=== PATIENT | female | born 1950 | race Caucasian/White ===

== ENCOUNTER 2019-06-27 11:12 | Emergency (ER) | payer MEDICARE, SELFPAY ==
[2019-06-27] VITALS (67 sets, daily range): BP systolic 95–122; BP diastolic 68–88; PULSE 108–149; RESP 4–37; TEMP 36.5–37.1; O2SAT 91–99
--- NOTE | 2019-06-27 11:26 | DI.CT_ITS ---
EXAM: CT ABDOMEN PELVIS W CLINICAL HISTORY: Abdominal pain TECHNIQUE: CT examination of the abdomen and pelvis was performed with bolus infusion of 94 cc's of Omnipaque 350. COMPARISON: No exams were available for comparison FINDINGS: Heart is mildly enlarged. Lungs are clear with small bilateral pleural effusions noted, nonspecific. Hepatic parenchyma is heterogeneous and slightly decreased in attenuation, hepatic steatosis versus d ecreased cardiac output. Spleen is unremarkable as is the pancreas. Cholelithiasis noted. Small pericholecystic fluid collec tion noted, this may be due to mild ascites/pleural effusions versus localized inflammation, please c orrelate clinically. Abdominal aorta is of normal diameter. Visceral vessels are quite small in diameter. Significant na rrowing of the superior mesenteric artery noted a couple of cm above its origin, greater than 50 perc ent luminal diameter stenosis of small diameter artery. No significant abdominal wall hernia seen. Probable old right and left renal infarcts noted. No evidence of hydronephrosis or nephrolithiasis. No ureterolithiasis. Adrenals appear mildly hypertrophied bilaterally. No gross abdominal or pelvic adenopathy seen. Small fluid collection in the pelvis, nonspecific. Question mild wall thickening sigmoid colon, mild diverticulitis or colonic are colitis not excluded but the findings may be related to the aforementi oned mild generalized ascites and question mild CHF as evidenced by pleural effusions. IMPRESSION: 1. Bilateral pleural effusions, fluid in gallbladder fossa, fluid in the pelvis, the findings may als o be associated with mild cardiac failure 2. Cholelithiasis, no gross gallbladder wall thickening noted but if there is high clinical suspicion of cholecystitis, additional evaluation with ultrasound may be obtained. 3. Question wall thickening sigmoid colon, diverticulitis or colitis may be present, please correlate clinically.
--- NOTE | 2019-06-27 11:29 | W.ED.GENAD ---
Discharge Plan Disposition Patient Disposition: [facility] Condition: Stable Discharge Details Chief Complaint: Abd Prob Clinical Impression: Ascending cholangitis Primary Care Provider: Bhupendra Gagnon ED Provider: Geneiss Chao Home Meds and New Rx's Prescriptions: No Action aspirin 81 MG tablet,delayed release (DR/EC) 81 mg PO DAILY RF: 0 nitroglycerin 0.4 MG tablet, sublingual 0.4 mg Sublingual PRN RF: 0 SENEKOT-S 2 tab PO DAILY PRNRF: 0 venlafaxine 75 mg capsule,extended release 24hr 75 mg PO QAM Qty: 90 RF: 4 furosemide 20 mg tablet 20 mg PO DAILY Qty: 90 RF: 4 simvastatin 80 mg tablet 80 mg PO HS Qty: 90 RF: 4 spironolactone 25 mg tablet 25 mg PO DAILY Qty: 90 RF: 4 Flovent HFA 110 mcg/actuation HFA aerosol inhaler 2 puff Inhalation BID Qty: 1 RF: 5 albuterol sulfate [ProAir HFA] 90 mcg/actuation HFA aerosol inhaler 2 puff Inhalation Q6H PRN Qty: 1 RF: 5 metoprolol succinate 50 mg Tablet Extended Release 24 Hr 50 mg PO DAILY RF: 0 alprazolam 0.25 mg Tablet 0.25 mg PO PRN PRNRF: 0 lisinopril 10 mg Tablet 10 mg PO DAILY RF: 0 Discharge Data Discharge Date/Time-TO BE ENTERED AT DEPARTURE: 06/27/19 17:32 Medical Decision Making <Deondre Blackwell NP - Last Filed: 06/28/19 07:59> Patient presenting to the emergency department for chief complaint of abdominal pain. Patient states that she has had intermittent colicky abdominal pain for the past week, odd taste in her mouth, slight increase of cough with coughing causing some dry heaves. Patient this morning had some dry heaves and noted some palpitations and so decided to come to the emergency department given her significant cardiac history. Patient states previous CA with bypass surgery and pacemaker, COPD, and occasional acid reflux otherwise denies any other medical history. Physical exam shows a anxious tachypneic patient that is otherwise alert and oriented, afebrile, stable blood pressure. Physical exam does show diffuse abdominal tenderness throughout the abdomen with patient pointing to periumbilical area for discomfort, beyond tachycardia cardiac exam is unremarkable, respiratory exam does show scattered wheezing and again tachypnea but otherwise no other acute findings noted on exam. Plan to check labs, EKG, chest x-ray and CT imaging. Pending results patient given DuoNeb, GI cocktail, IV fluid bolus, and small dose of morphine. EKG reviewed with Dr. Rc cid and shows sinus rhythm, rate of 120, right axis deviation and otherwise diffuse nonspecific T wave abnormality that is nondiagnostic, no STEMI noted. Pending results staffing specialist noted that patient vomited up GI cocktail so patient ordered Phenergan. Review of results show a leukocytosis with WBCs 15.77, CMP shows elevated anion gap of 14.9, creatinine of 1.34 and GFR of 39.45, no significant concern though is patient's elevated LFTs, total bilirubin of 2.0, AST of 714, ALT of 492, alk phos of 161, initial troponin is negative and lipase is also normal at 158. There is considerable concern for possible hepatitis versus cholecystitis. With patient's decreased GFR I did discuss with patient risk versus benefit of CT imaging with IV contrast. While she is in the accepted range of above 30 I wanted to inform patient of possible complications. After discussion with patient and significant other they were agreeable to having CT imaging performed with contrast. Patient remains tachycardic otherwise stable at this time. CT IMPRESSION: 1. Early uncomplicated sigmoid diverticulitis. 2. Submucosal fat deposition about the ascending colon with mild pericolonic fat stranding about the hepatic flexure is nonspecific but could represent an infectious or inflammatory process. 3. Small amount of free pelvic fluid thought likely related to adjacent diverticulitis. 4. Air in the vagina which can be seen with manipulation. Recommend clinical correlation to exclude infectious process. 5. Bilateral adrenal gland thickening incompletely evaluated. 6. Right kidney with chronic and prior sequela of infectious/ischemic insult. Impression should also include cholelithiasis in a nondistended gallbladder with adjacent pericholecystic fluid within the gallbladder fossa. Recommend clinical correlation and if needed, right upper quadrant ultrasound for further imaging evaluation. Chest x-ray showed cardiac device otherwise no acute findings. Given patient's laboratory values I am concerned for a infected gallbladder more so than the diverticulitis. Given this I did start patient on Zosyn and called Dr. Powell for surgical consultation. Dr. Ortiz was able to come in and evaluate patient and upon further review of records patient has a very low EF given her cardiac history patient does not meet criteria for any surgical interventions at [facility] and needs tertiary care center intervention. Patient does meet sepsis criteria given elevated white count, concern for ascending cholangitis, lactic acidosis, tachycardia and tachypnea. [facility] [place] and imaging sent. <GUSTAVO Kamara - Last Filed: 06/27/19 16:55> Accepted patient sign out pending disposition and callback from [facility]. I spoke with [facility] regarding this patient I spoke with surgical staff as well as the supervisor transferring and boxing. They do have appropriate staff to accept this patient. Accepting physician Dr. Go. Pt to be transferred via ambulance. Pt agrees with plan of care and disposition. HPI <Deondre Blackwell NP - Last Filed: 06/28/19 07:59> General Mode of arrival: ambulatory. Date/Time Provider Initiated Documentation: 06/27/19 11:13. Limitations to Documentation: no limitations. Information obtained by: patient and RN notes reviewed. History of Present Illness 68 year old F presents to the emergency department with the chief complaint of Abdominal pain, described as moderate, with intensity rated at 8. Quality is described as sharp, and is localized to the abdomen. Patient started experiencing this week(s) (2) and it has been intermittent and colicky. No relieving factors improve symptom(s), No exacerbating factors reported . Patient did receive the following treatments prior to arrival, other (Pepto-Bismol) Related Data Home Medications Medication Instructions Recorded Confirmed Senekot-S 2 tab PO DAILY PRN 06/17/13 06/27/19 aspirin 81 mg PO DAILY tab-cap 06/17/13 06/27/19 nitroglycerin 0.4 mg SUBLINGUAL PRN 06/17/13 06/27/19 venlafaxine 75 mg capsule,extended 75 mg PO QAM #90 tab 08/25/18 06/27/19 release 24 hr furosemide 20 mg tablet 20 mg PO DAILY #90 tab-cap 10/23/18 06/27/19 simvastatin 80 mg tablet 80 mg PO HS #90 tab 10/23/18 06/27/19 spironolactone 25 mg tablet 25 mg PO DAILY #90 tab-cap 11/12/18 06/27/19 fluticasone propionate 110 2 puff INHALATION BID #1 inhaler 01/02/19 06/27/19 mcg/actuation HFA aerosol inhaler albuterol sulfate 90 mcg/actuation 2 puff INHALATION Q6H PRN #1 06/16/19 06/27/19 aerosol inhaler inhaler alprazolam 0.25 mg PO PRN PRN 06/27/19 06/27/19 lisinopril 10 mg PO DAILY 06/27/19 06/27/19 metoprolol succinate 50 mg PO DAILY 06/27/19 06/27/19 Previous Rx's Medication Instructions Recorded venlafaxine 75 mg capsule,extended 75 mg PO QAM #90 tab 08/25/18 release 24 hr furosemide 20 mg tablet 20 mg PO DAILY #90 tab-cap 10/23/18 simvastatin 80 mg tablet 80 mg PO HS #90 tab 10/23/18 spironolactone 25 mg tablet 25 mg PO DAILY #90 tab-cap 11/12/18 fluticasone propionate 110 2 puff INHALATION BID #1 inhaler 01/02/19 mcg/actuation HFA aerosol inhaler albuterol sulfate 90 mcg/actuation 2 puff INHALATION Q6H PRN #1 06/16/19 aerosol inhaler inhaler Allergies Allergy/AdvReac Type Severity Reaction Status Date / Time niacin Allergy Intermediate ITCHING Unverified 09/27/17 08:37 General Stated Complaint: Abd Prob KRUPA: 3 Review of Systems <Deondre Blackwell NP - Last Filed: 06/28/19 07:59> Constitutional Constitutional: Denies chills, Denies fever(s) and Reports poor appetite Cardiovascular Cardiovascular: Denies chest pain, Reports palpitations and Denies dyspnea Respiratory Respiratory: Reports cough and Denies dyspnea Gastrointestinal Gastrointestinal: Reports as per HPI, Reports abdominal pain, Denies melena, Denies change in bowel habits, Denies constipation, Reports heartburn, Denies diarrhea, Reports nausea and Denies vomiting Genitourinary Genitourinary: Denies urinary frequency and Denies dysuria Endocrine Endocrine: Reports palpitations PFSH <Deondre Blackwell NP - Last Filed: 06/28/19 07:59> Medical History (Updated 06/27/19 @ 16:20 by Kelsie Powell DO) Acute cholecystitis due to biliary calculus (Acute) Ischemic dilated cardiomyopathy (Acute) Myocardial infarct (Chronic) Severe chronic obstructive pulmonary disease (Acute) Surgical History BYPASS Coronary Stent x 3 DEFIBRILATOR (~10/2014) 2005;2014 Ligation of fallopian tube Family History Mother Essential hypertension Father Neoplasm LUNG Asthma Sister MS (multiple sclerosis) Brother No problems noted. FAMILY HISTORY MS (multiple sclerosis) Grandmother Heart disease Brother No problems noted. Son No problems noted. Social History Smoking/Tobacco Use Status: Current every day Alcohol Intake: current Alcohol Intake frequency: a few times a week Alcohol type: beer Drug use: Never Substance use type: does not use Additional Social history: pt is not alone to ask privately Exam <Deondre Blackwell NP - Last Filed: 06/28/19 07:59> Const General: cooperative and anxious Orientation: alert, awake and oriented x3 Resp Effort & Inspection: able to speak in complete sentences and tachypneic Auscultation: wheezes expiratory wheezes and scattered wheezes Cardio Rate: regular rate Rhythm: regular rhythm Heart Sounds: S1 normal, S2 normal, no click, no gallops, no murmurs and no rubs GI Inspection: normal to inspection Palpation: soft, no hepatosplenomegaly, not firm, no guarding, no masses, no pulsatile masses, not rigid, no splenomegaly and tender (Diffuse nonfocal) Auscultation: normal bowel sounds Back/Spine/Pelvis Back: no CVA tenderness Neuro General: alert, awake, oriented x3, gait normal and moves all extremities Course <Deondre Blackwell NP - Last Filed: 06/28/19 07:59> Vital Signs Vital signs: Vital Signs Temperature 36.5 C 06/27/19 11:20 Pulse 120 H 06/27/19 11:20 Respiratory Rate 24 06/27/19 11:20 Pulse Oximetry 96 06/27/19 11:20 Temperature 36.5 C 06/27/19 11:20 Temperature Source Oral 06/27/19 11:20 Pulse 120 H 06/27/19 11:20 Respiratory Rate 24 10/19/19 11:20 Pulse Oximetry 96 06/27/19 11:20 Oxygen Delivery Method Room Air 06/27/19 11:20 Oxygen Flow Rate 0 06/27/19 11:20 Pain Level 8 06/27/19 11:20 Sign Out <Deondre Blackwell NP - Last Filed: 06/28/19 07:59> Sign Out Data: Sign Out Comment: Patient signed out to GUSTAVO Willis. Patient is [place] [facility] [place] given that patient has poor cardiac function, COPD, and significant comorbidities complicating any surgical availability at our facility. Last updated by Deondre Blackwell NP at 06/27/19 16:08
[2019-06-27] MEDS: Normal Saline 500 ML IV ×3 (11:45→14:35)
[2019-06-27 11:52] LABS: Abs Immature Grans 0.06 k/cumm (0.0-0.09); Absolute Basophil Count 0.05 k/cumm (0.0-0.2); Absolute Eosinophil Count 0.03 k/cumm (0.0-0.7); Absolute Monocyte Count 1.62 k/cumm (0.11-0.7); Basophils % 0.3; Eosinophils % 0.2; HGB 14.3 g/dL (12.0-15.5); Immature Grans % 0.4; Lymphocytes % 11.7; Mean Corp. HGB Concentration 32.5 g/dL (32.0-36.0); Mean Corpuscular Hemoglobin 29.9 pg (27.0-33.0); Mean Corpuscular Volume 92.1 fL (80-95); Mean Platelet Volume 11.3 fL (8.0-11.0); Monocytes % 10.3; Neutrophils % 77.1; Platelet Count 268 x1000/uL (130-400); RBC 4.78 m/cumm (4.00-5.20); RBC Distribution Width 14.4 % (11.7-14.6); White Blood Cell Count 15.77 k/cumm (4.4-10.8)
[2019-06-27] MEDS: Albuterol/Ipratropium 3 ML UPD VIAL UPD (11:56)
[2019-06-27 12:10] LABS: ALT 492 U/L (14-59); AST 714 U/L (15-37); Albumin 4.3 g/dL (3.4-5.0); Alkaline Phosphatase 161 U/L (46-116); Anion Gap 14.9 mmol/L (3-11); BUN 18 mg/dL (7-18); CO2 23.1 mmol/L (21.0-32.0); CREATININE 1.34 mg/dL (0.55-1.02); Calcium 8.7 mg/dL (8.5-10.1); Chloride 98 mmol/L (98-107); Estimated GFR 39.45 (mL/min/1.73m2); Glucose 144 mg/dL (70-100); Lipase 158 U/L (73-393); Magnesium 1.7 mg/dL (1.8-2.4); Potassium 4.4 mmol/L (3.5-5.1); Sodium 136 mmol/L (136-145); Total Protein 7.1 g/dL (6.4-8.2)
[2019-06-27 12:14] LABS: Troponin I < 0.05 ng/mL (0.00-0.06)
[2019-06-27 12:15] LABS: Absolute Lymphocyte Count 1.85 k/cumm (1.2-3.4); Absolute Neutrophil Count 12.16 k/cumm (1.2-6.7)
[2019-06-27 12:17] LABS: Diff Comment Diff Reviewed; RBC Morphology Normal
[2019-06-27] MEDS: Omnipaque 350 MG/ML 100 ML BTL IJ (12:30)
[2019-06-27] MEDS: Normal Saline Flush 10 ML SYR IVP (12:31)
--- NOTE | 2019-06-27 12:35 | DI.RAD_ITS ---
EXAM: XR CHEST 2V PA LATERAL CLINICAL HISTORY: cough TECHNIQUE: COMPARISON: No exams were available for comparison FINDINGS: Heart is mildly enlarged. Small pleural effusions were noted on CT. Transvenous cardiac pacemaker a nd coronary artery stent noted. No hilario pulmonary edema or consolidation. IMPRESSION: Cardiomegaly, no hilario pulmonary edema but bilateral pleural effusions were noted on CT and could rep resent mild CHF.
[2019-06-27 13:13] LABS: Lactate 3.6 mmol/L (0.6-1.4)
[2019-06-27 13:32] LABS: Bilirubin Small (Negative); Blood Trace-intact (Negative); Clarity Clear (Clear); Glucose Negative (Negative); Ketones Negative (Negative); Leukocyte Esterase Negative (Negative); Nitrite Negative (Negative); pH 5.5 (5-8)
--- NOTE | 2019-06-27 13:47 | DI.VRAD_ITS ---
PROCEDURE INFORMATION: Exam: XR Chest, 2 Views Exam date and time: 06/27/2019 12:50 PM Clinical history: 68 years old, female; Other: Cough TECHNIQUE: Imaging protocol: XR of the chest Views: 2 views. COMPARISON: No relevant prior studies available. FINDINGS: Tubes, catheters and devices: Left chest single lead cardiac device with lead projecting likely within the right atrium and right ventricle. Lungs: Hyperinflation. Flattening of the hemidiaphragms. Upper lobe predominant emphysema change. No focal airspace consolidation. Pulmonary vasculature is within normal limits. Pleural space: No pleural effusion or pneumothorax. Heart/Mediastinum: Coronary arterial stent. Cardiomediastinal silhouette is within normal limits for size. Bones/joints: Median sternotomy wires. Median sternotomy changes. No osseous or soft tissue abnormalities. IMPRESSION: 1. Devices as above. 2. No focal airspace consolidation. 3. No acute radiographic pulmonary findings. Dictated and Authenticated by: Bhupendra Hitchcock MD. Ordering:OLAYINKA Mendosa MD
[2019-06-27 13:53] LABS: Bacteria Moderate HPF (Negative); Crystals Negative HPF (Negative); Epithelial Cells Many HPF (Negative); Mucus Negative (Negative); Other Cells Few Yeast (Negative)
[2019-06-27 13:54] LABS: C & S Indicated? No/Sq. Contamination; Casts 10-20 Hyaline LPF (Negative)
--- NOTE | 2019-06-27 14:03 | DI.VRAD_ITS ---
Addendum created by Bhupendra Hitchcock MD on 06/27/2019 2:04:44 PM EDT ADDENDUM: Impression should also include cholelithiasis in a nondistended gallbladder with adjacent pericholecystic fluid within the gallbladder fossa. Recommend clinical correlation and if needed, right upper quadrant ultrasound for further imaging evaluation. Initial report created on 06/27/2019 2:03:07 PM EDT PROCEDURE INFORMATION: Exam: CT Abdomen And Pelvis With Contrast Exam date and time: 06/27/2019 12:40 PM Clinical history: 68 years old, female; Other: Abdominal pain TECHNIQUE: Imaging protocol: Computed tomography of the abdomen and pelvis with intravenous contrast. Radiation optimization: All CT scans at this facility use at least one of these dose optimization techniques: automated exposure control; mA and/or kV adjustment per patient size (includes targeted exams where dose is matched to clinical indication); or iterative reconstruction. Contrast material: OMNIPAQUE 350; Contrast volume: 94 ml; Contrast route: IV; COMPARISON: No relevant prior studies available. FINDINGS: Mediastinum: Small sliding hiatal hernia. Liver: The liver is heterogeneously hypoattenuating/hypoenhancing which could be due to hepatic steatosis and/or poor cardiac output. Gallbladder and bile ducts: Cholelithiasis within a non-distended gallbladder. Pericholecystic fluid about the gallbladder fossa. There may be mild gallbladder wall thickening. Pancreas: Unremarkable. No ductal dilation. Spleen: Unremarkable. No splenomegaly. Adrenals: Bilateral adrenal gland thickening incompletely characterized. Kidneys and ureters: The right kidney is asymmetric and smaller than the left with areas of cortical thinning and parenchymal defect which likely represent sequelae of prior ischemic or infectious insults. No hydronephrosis. No nephrolithiasis. Stomach and bowel: No obstruction. There is submucosal fat deposition about the ascending colon with mild pericolonic fat stranding about the hepatic flexure. Sigmoid diverticulosis with wall thickening and adjacent free fluid may suggest early diverticulitis. Appendix: No evidence of appendicitis. Intraperitoneal space: Small amount of free intraperitoneal fluid about the pelvis. No free air. Vasculature: Moderate atherosclerotic calcification of the aorta and its major branches. Lymph nodes: Unremarkable. No enlarged lymph nodes. Bladder: Unremarkable as visualized. Reproductive: There is air in the vagina. The uterus and adnexa appear unremarkable. Bones/joints: Unremarkable. No acute fracture. Soft tissues: Unremarkable. Other findings: Partially visualized single lead traversing the tricuspid valve. IMPRESSION: 1. Early uncomplicated sigmoid diverticulitis. 2. Submucosal fat deposition about the ascending colon with mild pericolonic fat stranding about the hepatic flexure is nonspecific but could represent an infectious or inflammatory process. 3. Small amount of free pelvic fluid thought likely related to adjacent diverticulitis. 4. Air in the vagina which can be seen with manipulation. Recommend clinical correlation to exclude infectious process. 5. Bilateral adrenal gland thickening incompletely evaluated. 6. Right kidney with chronic and prior sequela of infectious/ischemic insult. Dictated and Authenticated by: Bhupendra Hitchcock MD. Ordering:OLAYINKA Mendosa MD
[2019-06-27] MEDS: PIPERACILLIN/TAZO 4.5 GM in Normal Saline 100 ML IVPB (14:43)
[2019-06-27 15:01] LABS: Troponin I 0.05 ng/mL (0.00-0.06)
--- NOTE | 2019-06-27 15:21 | NUR.NOTE ---
Nursing Note: c/o feeling warm---alert/cheeks flushed--Temp 36.8 po--no hives or rxn noted from Pipercillin---wheezes throughout-same as on admission-loose--does not want an updraft---[employer] notified.
[2019-06-27] MEDS: Lactated Ringers 1,000 ML 150 ML IV (15:35)
--- NOTE | 2019-06-27 16:00 | W.SURGCON ---
Date of service: 06/27/19 Time of Service: 16:01 Assessment and Plan Assessment and plan (1) Acute cholecystitis due to biliary calculus: Status: Acute Assessment and plan: pt was noted to have severe COPD on recent PFT's in 2013. She has continued to smoke [place] [facility]%. She does need to have her GB out. However, I think Sx should be done [place] [facility] She has been fluid resuscitated adn started on Abx She has been given neubs as well. I d/w case w/ pt and w/ ED staff. transfer pd. 1hr spent doing consult (2) Ischemic dilated cardiomyopathy: Status: Acute (3) Severe chronic obstructive pulmonary disease: Status: Acute History of Present Illness Narrative: Pt came into the ED today c/o abdominal pain. Pt orig starting having GB problems w/ her . Would occ get problems, H/I, but nothing severe. She has been having pain (RUQ) and nausea for the last two wks. She has been unable to eat. She is dry heaving only. But, she has not really been eating. No diarrhea, and actually constipated. no fever/chills. the pain is in RUQ and lower abdom segments. It does not radiate into the back. She recently hurt her shoulder and cannot lift her arm. Today she starting having fluttering in her chest- and this is what actually brought her into the ED. She denies any CP at the time of exam. She is SOB and wheezing. She notes more SOB adn weakness in the last 2 wks. She cant walk up a flight of stairs for SOB. She had cardiac stents in 2005 and CABG in 2006 and pacer/defib. She stopped smoking yest. EKG shows A. flutter and rate of 120. BP's have been stable. Consults Consult date: 06/27/19 Requesting physician: Deondre Blackwell Review of Systems Review of Systems ROS Unobtainable: All systems reviewed & are unremarkable except as noted in HPI and below Constitutional Constitutional: Reports as per HPI, Reports system reviewed and no additional complaints, except as docu, Reports anorexia, Denies chills, Denies difficulty sleeping, Reports fatigue, Denies headache(s), Denies lethargy, Reports malaise, Reports poor appetite, Reports weakness, Denies weight gain and Denies weight loss Eyes Eyes: Reports as per HPI, Reports system reviewed and no additional complaints, except as docu and Denies change in vision Comments: glasses ENT Ears, Nose, Mouth, and Throat: Reports system reviewed and no additional complaints, except as docu, Reports as per HPI, Denies change in voice, Denies dental pain, Denies dysphagia, Reports dizziness, Reports dry mouth, Denies facial pain, Denies headache(s) and Denies odynophagia Comments: edentulous Cardiovascular Cardiovascular: Reports as per HPI, Reports system reviewed and no additional complaints, except as docu, Denies chest pain, Denies chest pain with activity, Denies syncope, Denies leg edema, Reports dyspnea and Reports dyspnea on exertion Comments: dizzy week. SOB. fluttering in chest defib/pacer last EF 20% Respiratory Respiratory: Reports as per HPI, Reports system reviewed and no additional complaints, except as docu, Denies chest congestion, Denies cough, Denies pain with cough, Reports dyspnea, Reports dyspnea on exertion and Reports wheezing Comments: SOB long standing smoker- quit yesterday not on home O2 [id number] .98 Gastrointestinal Gastrointestinal: Reports as per HPI, Reports system reviewed and no additional complaints, except as docu, Reports abdominal pain, Denies bloating, Denies change in bowel habits, Denies change in stool character, Denies constipation, Denies cramping, Denies dysphagia, Denies early satiety, Denies heartburn, Denies diarrhea, Reports nausea, Denies odynophagia and Reports vomiting Comments: no appetite hx of gallstones prior Tubal no other abdoinal Sx Musculoskeletal Musculoskeletal: Reports system reviewed and no additional complaints, except as docu, Reports as per HPI, Denies abnormal gait, Denies arthralgias and Denies muscle weakness Comments: + diffuse OA Integumentary/Breasts Skin/Breast: Reports system reviewed and no additional complaints, except as docu, Reports as per HPI, Denies changing lesions, Denies new lesions and Denies jaundice Neurologic Neurologic: Reports system reviewed and no additional complaints, except as docu, Reports as per HPI, Denies abnormal speech, Denies abnormal gait, Reports dizziness, Denies syncope, Denies headache(s), Denies memory loss and Reports weakness Psychiatric Psychiatric: Reports system reviewed and no additional complaints, except as docu, Reports as per HPI, Denies change in appetite and Denies memory loss Endocrine Endocrine: Reports fatigue, Denies polydipsia and Denies polyuria Comments: no DM Hematologic/Lymphatic Hematologic/Lymphatic: Reports system reviewed and no additional complaints, except as docu, Denies easy bleeding and Denies easy bruising Allergic/Immunologic Allergic/Immunologic: Denies system reviewed and no additional complaints, except as docu, Reports as per HPI, Denies urticaria and Reports wheezing [facility] Medical History Myocardial infarct (Chronic) Surgical History BYPASS Coronary Stent x 3 DEFIBRILATOR (~10/2014) 2005;2014 Ligation of fallopian tube Family History Mother Essential hypertension Father Neoplasm LUNG Asthma Sister MS (multiple sclerosis) Brother No problems noted. FAMILY HISTORY MS (multiple sclerosis) Grandmother Heart disease Brother No problems noted. Son No problems noted. Social History Smoking/Tobacco Use Status: Current every day Alcohol Intake: current Alcohol Intake frequency: a few times a week Alcohol type: beer Drug use: Never Substance use type: does not use Additional Social history: pt is not alone to ask privately Exam Const General: cooperative, comfortable, well developed, well groomed and in distress Nutritional Appearance: average body habitus and well nourished Orientation: alert, awake and oriented x3 Other: appears older than stated age [facility] Head: normal to inspection, normocephalic and atraumatic Ears: hearing grossly normal bilaterally and external ears normal General nose exam: external nose normal Face and sinus: normal facial exam and sinuses nontender Mouth: oral mucosae normal, lip normal, tongue normal and moist mucous membranes Teeth and gingiva: edentulous Eyes General: appearance normal, both eyes and all related structures Conjunctivae: conjunctivae normal Sclera: sclerae normal Pupils: PERRL Neck Neck: normal visual inspection and full ROM Chest Chest: normal inspection of the chest Resp Effort & Inspection: able to speak in complete sentences, audible wheezes, no cough, no nasal flaring, not tachypneic and no use of accessory muscles Auscultation: clear to auscultation bilaterally, no rales, no rhonchi and wheezes scattered wheezes and lower bilaterally Cardio Jugular venous pressure: no JVD Rate: regular rate Rhythm: regular rhythm Other: pulse around 100 EKG said flutter w/ rate at 100 GI Inspection: normal to inspection, no edema and non-distended Palpation: soft, guarding, no masses, tender (radiates into lower abdom) in the RUQ and at McBurney's point and No ascites Auscultation: normal bowel sounds Other: no distention good BS no diffuse peritonitis tender in RUQ Skin General skin exam: no rashes or lesions noted Trauma: no lacerations or abrasions Neuro General: alert, oriented x3, oriented, gait normal, moves all extremities, no focal motor deficits and CN's II-XI intact bilaterally Cognition: normal cognition Speech: speech normal Gait: normal gait Motor: muscle tone normal throughout Extrem General: normal to inspection, full ROM and no clubbing, cyanosis or edema Other: no edema diffuse OA in all ext Psych Appearance: grossly normal and well kempt Mental Status: mental status grossly normal Speech and Movement: speech and movement normal Affect: normal affect Results Last Vital Signs Temp 36.8 C 06/27/19 15:18 Pulse 122 H 06/27/19 15:45 Resp 33 H 06/27/19 15:50 BP 109/70 06/27/19 15:45 Pulse Ox 95 06/27/19 15:50 Labs Result diagrams: 06/27/19 11:35 06/27/19 11:35 Labs: Laboratory Results - last 24 hr 06/27/19 06/27/19 06/27/19 11:35 11:35 13:01 WBC 15.77 H RBC 4.78 Hgb 14.3 Hct 44.0 MCV 92.1 MCH 29.9 MCHC 32.5 RDW 14.4 Plt Count 268 MPV 11.3 H Immature Gran % 0.4 Neutrophils % 77.1 Lymphocytes % 11.7 Monocytes % 10.3 Eosinophils % 0.2 Basophils % 0.3 Absolute Neutrophils 12.16 H Absolute Lymphocytes 1.85 Absolute Monocytes 1.62 H Absolute Eosinophils 0.03 Absolute Basophils 0.05 Differential Comment Diff reviewed RBC Morphology Normal Sodium 136 Potassium 4.4 Chloride 98 Carbon Dioxide 23.1 Anion Gap 14.9 H BUN 18 Creatinine 1.34 H Estimated GFR/1.73 m2 39.45 Glucose 144 H Lactate 3.6 H* Calcium 8.7 Magnesium 1.7 L Total Bilirubin 2.0 H AST 714 H ALT 492 H Alkaline Phosphatase 161 H Troponin I < 0.05 Total Protein 7.1 Albumin 4.3 Lipase 158 Urine Color Urine Clarity Urine pH Ur Specific Paradise Urine Protein Urine Ketones Urine Blood Urine Nitrite Urine Bilirubin Urine Urobilinogen Ur Leukocyte Esterase Urine RBC Urine WBC Ur Epithelial Cells Urine Crystals Urine Bacteria Urine Casts Urine Mucus Urine Other Ur Culture Indicated? Urine Glucose 06/27/19 06/27/19 13:15 14:38 WBC RBC Hgb Hct MCV MCH MCHC RDW Plt Count MPV Immature Gran % Neutrophils % Lymphocytes % Monocytes % Eosinophils % Basophils % Absolute Neutrophils Absolute Lymphocytes Absolute Monocytes Absolute Eosinophils Absolute Basophils Differential Comment RBC Morphology Sodium Potassium Chloride Carbon Dioxide Anion Gap BUN Creatinine Estimated GFR/1.73 m2 Glucose Lactate Calcium Magnesium Total Bilirubin AST ALT Alkaline Phosphatase Troponin I 0.05 Total Protein Albumin Lipase Urine Color Yellow Urine Clarity Clear Urine pH 5.5 Ur Specific Paradise 1.010 Urine Protein 30 H Urine Ketones Negative Urine Blood Trace-intact H Urine Nitrite Negative Urine Bilirubin Small H Urine Urobilinogen 1.0 H Ur Leukocyte Esterase Negative Urine RBC 3-5 H Urine WBC 10-20 Ur Epithelial Cells Many Urine Crystals Negative Urine Bacteria Moderate Urine Casts 10-20 hyaline Urine Mucus Negative Urine Other Few yeast Ur Culture Indicated? No/sq. contamination Urine Glucose Negative
[2019-06-29 09:59] LABS: Hepatitis A Antibody IgM Negative (NEGAT); Hepatitis B Core Antibody Negative (NEGAT); Hepatitis B surface Ag Negative (NEGAT); Hepatitis C Ab w Rflx HCV PCR Negative (NEGAT)
== END 2019-06-27 17:32 | disposition short-term general hospital (02) ==
PROVIDERS: Nurse Practitioner Family; Emergency Provider Physician Assistant; PCP Family Medicine
DX: K80.00 Calculus of gallbladder with acute cholecystitis without obstruction (principal); K83.09 Other cholangitis; J44.9 Chronic obstructive pulmonary disease, unspecified; F17.210 Nicotine dependence, cigarettes, uncomplicated; I42.0 Dilated cardiomyopathy; Z95.0 Presence of cardiac pacemaker
CPT/HCPCS: 36410; 36415; 80053; 83690; 86704; 86709; 86803; 87040; 87340; 93005; 94640; 96361; 96365; 96367; 99253; 99284; 99285; 71046; 74177; 81003; 81015; 83605; 83735; 84484; 85025; 93010; J2543; J3490; J7620

== ENCOUNTER 2019-09-09 14:09 | Emergency (ER) | payer MEDICARE, SELFPAY ==
[2019-09-09] VITALS (78 sets, daily range): BP systolic 50–102; BP diastolic 34–78; PULSE 86–149; RESP 7–31; TEMP 36.3; O2SAT 92–99
--- NOTE | 2019-09-09 14:27 | ED.GENADUL_ITS ---
Discharge Plan Disposition Patient Disposition: [facility] Condition: Stable Discharge Details Chief Complaint: SOB Clinical Impression: Acute on chronic clinical systolic heart failure, Acute kidney injury, Hyperkalemia, Elevated troponin, UTI (urinary tract infection) Primary Care Provider: Bhupendra Gagnon ED Provider: Yfn Ferrer Home Meds and New Rx's Prescriptions: No Action aspirin 81 MG tablet,delayed release (DR/EC) 81 mg PO DAILY RF: 0 nitroglycerin 0.4 MG tablet, sublingual 0.4 mg Sublingual PRN RF: 0 SENEKOT-S 2 tab PO DAILY PRNRF: 0 venlafaxine 75 mg capsule,extended release 24hr 75 mg PO QAM Qty: 90 RF: 4 Flovent HFA 110 mcg/actuation HFA aerosol inhaler 2 puff Inhalation BID Qty: 1 RF: 5 albuterol sulfate [ProAir HFA] 90 mcg/actuation HFA aerosol inhaler 2 puff Inhalation Q6H PRN Qty: 1 RF: 5 apixaban 5 mg tablet 5 mg PO BID RF: 0 Hydralazine 75 mg 75 mg PO TID RF: 0 pantoprazole 40 mg tablet,delayed release (DR/EC) 40 mg PO DAILY RF: 0 potassium chloride 20 mEq tablet extended release 20 meq PO DAILY RF: 0 torsemide 20 mg tablet 40 mg PO DAILY RF: 0 Fleet Enema 19-7 gram/118 mL Enema 66 - [address] PRN PRNRF: 0 docusate sodium [Colace] 100 mg Capsule 100 mg PO BID PRNRF: 0 ondansetron 4 mg Film 4 mg PO TID PRNRF: 0 Discharge Data Discharge Date/Time-TO BE ENTERED AT DEPARTURE: 09/09/19 18:34 Medical Decision Making 68-year-old female with a history of CHF, PA, hypertension who presents with shortness of breath, fatigue, weakness and worsening lower extremity edema over the past few days. She took her regular meds this morning including 40 mg torsemide. Blood pressure 89/57 on arrival. Afebrile. Mildly tachypneic. Normal oxygen saturation. Patient has moderate labored breathing. Diminished breath sounds throughout but no obvious crackles or rales. She has 2+ pitting edema lower extremities. Concern for acute CHF, also PA, pneumonia, arrhythmia, electrolyte abnormality. Labs and chest x-ray ordered. Also give a dose of 40 mg Lasix IV. 1510 --labs and imaging reviewed. White blood cell count 25. Hemoglobin 9.7, decreased from 14 3 months ago. Sodium 123. Potassium 6.9. Bicarb 15. Anion gap 21. BUN 100. Creatinine 3.29. Troponin 0 0.08. Chest x-ray notes significant bilateral pleural effusions as well as well demarcated areas of consolidation in right upper and middle lobe. No significant improvement in symptoms with Lasix. BP downtrending, map 55. Will start BiPAP. Discussed with patient at bedside and she does not want CPR or intubation if needed. She is unsure regarding dialysis. Call placed to [facility] for transfer. Bedside ultrasound performed which noted normal global cardiac activity without obvious pericardial effusion. Discussed with patient in room and she would not want CPR or intubation. Discussed with patient that she could need dialysis and she is unsure if she would want to have this done. She is agreeable to go to [facility] and is aware that these procedures could be recommended. 1630 --discussed with [facility] critical care -accepting physician Dr. Puente. Discussed with and he states that patient decided last month at [facility] that she is DNR/DNI but he states that no formal paperwork had been completed. 1645 --patient does appear to be improving on BiPAP. BP 92/45. UA notes UTI. Vanc/zosyn given for possible pneumonia. Medical Records Medical records reviewed: Yes I reviewed the patient's medical records. Imaging Data Radiologic Study: Radiologist's impression: Addendum created by Karen Ballesteros MD on 09/09/2019 4:34:56 PM EST THIS REPORT CONTAINS FINDINGS THAT MAY BE CRITICAL TO PATIENT CARE. The findings were verbally communicated via telephone conference with yfn ferrer at 4:30 PM EST on 09/09/2019. The findings were acknowledged and understood. Initial report created on 09/09/2019 4:29:50 PM EST PROCEDURE INFORMATION: Exam: XR Chest, 2 Views Exam date and time: 09/09/2019 3:00 PM Age: 68 years old Clinical indication: Shortness of breath; Patient HX: Short of breath, leg swelling, R/O chf TECHNIQUE: Imaging protocol: XR of the chest Views: 2 views. COMPARISON: XR CHEST 2V PA LATERAL 06/27/2019 12:46 PM FINDINGS: Lungs: There are moderate bilateral pleural effusions with bilateral lower lung and left retrocardiac opacities that could represent atelectasis or infection. Elsewhere, there is a mild interstitial pattern to the upper lungs which should be correlated with any concern for edema. There is a horizontal heterogeneous opacity in the right upper lung laterally concerning for airspace disease such as pneumonia. Inferior to this, a second horizontal opacity is identified which has the appearance of a fluid level. Although this could represent fluid in a fissure, the horizontal fissure appears higher. Other type of pulmonary abnormalities such as a fluid containing cavitary process is therefore not excluded. A CT scan is recommended for further evaluation. Pleural space: No pneumothorax. See above. Heart/Mediastinum: The mediastinum is mildly prominent but unchanged. Cardiac pacer device, sternotomy wires, and perimediastinal clips remain seen. A probable cardiac stent is noted. Cardiomegaly appears increased from prior study. Bones/joints: There are skeletal degenerative changes. IMPRESSION: 1. Horizontal heterogeneous opacity in the right upper lung laterally concerning for airspace disease such as pneumonia. Inferior to this, a second indeterminate horizontal opacity is identified which has the appearance of a fluid level. CT scan recommended for further evaluation. See discussion above. 2. Moderate bilateral pleural effusions with bilateral lower lung and left retrocardiac opacities that could represent atelectasis or infection. Elsewhere, there is a mild interstitial pattern to the upper lungs which should be correlated with any concern for edema. 3. Cardiomegaly, increased from prior examination. Other findings/details as above. Lab Data Lab results reviewed: Yes I reviewed the patient's lab results. ECG Data Attestation: I personally reviewed and interpreted this ECG (s) as follows: Interpretation: Rate of 113, sinus, low voltage. No acute ST elevation or depression. CT 192. QTc 458. QRS 124. HPI General Mode of arrival: ambulatory . Date/Time Provider Initiated Documentation: 09/09/19 14:37 . Limitations to Documentation: no limitations . Information obtained by: patient . History of Present Illness 68 year old F presents to the emergency department with the chief complaint of shortness of breath, fatigue, weakness, described as moderate, Patient started experiencing this day(s) (3) and it has been constant. Rest improves symptom(s), Movement worsens symptoms . Patient notes shortness of breath and weakness; denies chest pain, cough, fever/chills, nausea/vomiting, rash, seizure and syncope. Patient did receive the following treatments prior to arrival, other (she took all of her regular meds today including torsemide) Related Data Home Medications Medication Instructions Recorded Confirmed Senekot-S 2 tab PO DAILY PRN 06/17/13 09/09/19 aspirin 81 mg PO DAILY tab-cap 06/17/13 09/09/19 nitroglycerin 0.4 mg SUBLINGUAL PRN 06/17/13 09/09/19 venlafaxine 75 mg capsule,extended 75 mg PO QAM #90 tab 08/25/18 09/09/19 release 24 hr fluticasone propionate 110 2 puff INHALATION BID #1 inhaler 01/02/19 09/09/19 mcg/actuation HFA aerosol inhaler albuterol sulfate 90 mcg/actuation 2 puff INHALATION Q6H PRN #1 06/16/19 06/27/19 aerosol inhaler inhaler Hydralazine 75 mg PO TID 08/17/19 09/09/19 apixaban 5 mg tablet 5 mg PO BID 08/17/19 09/09/19 pantoprazole 40 mg tablet,delayed 40 mg PO DAILY 08/17/19 09/09/19 release potassium chloride 20 mEq 20 meq PO DAILY 08/17/19 09/09/19 tablet,extended release torsemide 20 mg tablet 40 mg PO DAILY tab 08/17/19 09/09/19 docusate sodium [Colace] 100 mg PO BID PRN 09/09/19 09/09/19 ondansetron 4 mg PO TID PRN 09/09/19 09/09/19 sodium phosphates [Fleet Enema] 66 - [address] PRN PRN 09/09/19 09/09/19 Previous Rx's Medication Instructions Recorded venlafaxine 75 mg capsule,extended 75 mg PO QAM #90 tab 08/25/18 release 24 hr fluticasone propionate 110 2 puff INHALATION BID #1 inhaler 01/02/19 mcg/actuation HFA aerosol inhaler albuterol sulfate 90 mcg/actuation 2 puff INHALATION Q6H PRN #1 10/08/19 aerosol inhaler inhaler Allergies Allergy/AdvReac Type Severity Reaction Status Date / Time niacin Allergy Intermediate ITCHING Unverified 09/27/17 08:37 General KRUPA: 3 Review of Systems All systems reviewed & are unremarkable except as noted in HPI and below Constitutional Constitutional: Reports as per HPI, Denies chills, Reports fatigue, Denies fever(s) and Reports poor appetite Eyes Eyes: Denies blurry vision ENT Ears, Nose, Mouth, and Throat: Denies dizziness, Denies sore throat and Denies throat swelling Cardiovascular Cardiovascular: Denies chest pain and Reports dyspnea Respiratory Respiratory: Denies cough and Reports dyspnea Gastrointestinal Gastrointestinal: Denies abdominal pain, Denies diarrhea and Denies vomiting Genitourinary Genitourinary: Denies hematuria and Denies dysuria Musculoskeletal Musculoskeletal: Denies back pain and Denies numbness Integumentary/Breasts Skin/Breast: Denies lesions and Denies rash Neurologic Neurologic: Denies dizziness, Denies focal weakness and Denies numbness Endocrine Endocrine: Reports fatigue Allergic/Immunologic Allergic/Immunologic: Denies throat swelling [facility] Medical History Acute cholecystitis due to biliary calculus (Acute) Claudication of both lower extremities (Acute) Counseling regarding advance directives and goals of care (Acute) REYNOSO (dyspnea on exertion) (Acute) Edema (Chronic) severe, to sacrum, +3 Ex-smoker for less than 1 year (Chronic) quit June 2019 Full code status (Acute) Ischemic dilated cardiomyopathy (Acute) Myocardial infarct (Chronic) Palliative care patient (Acute) Second hand smoke exposure (Acute) Sedentary lifestyle (Acute) Severe chronic obstructive pulmonary disease (Acute) Surgical History AICD (automatic cardioverter/defibrillator) present (Acute) BYPASS Coronary Stent x 3 DEFIBRILATOR (~10/2014) 2005;2014 Ligation of fallopian tube Family History Mother , aged 85 from dementia Essential hypertension Dementia Father , aged 48 Neoplasm LUNG Asthma End stage COPD Smoker Sister , aged 60 MS (multiple sclerosis) Brother Family estrangement FAMILY HISTORY MS (multiple sclerosis) Grandmother Heart disease Brother Family estrangement Daughter Family estrangement has not seen her daughter in 20 years Social History Smoking/Tobacco Use Status: Former Tobacco Use Tobacco: How many years used: 57 Second Hand Exposure: Yes Counseling given: counseling >3 minutes Alcohol Intake: current Alcohol Intake frequency: a few times a week Alcohol type: beer Drug use: Never Substance use type: does not use Household members: spouse Housing: house Number of Children: 2 number of grandchildren: 3 Communication Needs: Hard of Hearing and Corrective Lenses Education Level: high school Do you need help understanding health information?: Always current occupation: disabled; previously was a stitcher; 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 Pets and animals: Yes (one cat) Pets and animals: cat(s) What is your relationship status?: How often do you talk on the phone with friends or family?: once per week How often do you get together with friends or relatives?: once per week Panel score (0-1 are the most socially isolated patients): 1 What type of physical activity do you participate in: none, bed-bound, sedentary lifestyle and additional Details: does walk to br with walker but no other ambulation Duration: < 15 minutes/day Special aura needs: No Agree to transfusion: Yes Seatbelt use: always In current or past relationships, have you been: made to feel afraid Do you feel safe at home: Yes Do you feel safe in your relationship?: Yes Additional Social history: she is home alone at nights, when works. He sleeps during the day, up in the late afternoon/evening. Reports she takes her medications; her puts them out for her. Never has done pulm or card rehab; not interested. Still wants everything done: Full code. Exam Const General: cooperative, healthy appearing and no acute distress HENMT Head: normal to inspection Face and sinus: normal facial exam Eyes General: appearance normal, both eyes and all related structures Neck Neck: normal visual inspection and No submandibular swelling Lymphatic: no lymphadenopathy noted Chest Chest: normal inspection of the chest and no tenderness Resp Effort & Inspection: normal respiratory effort and able to speak in complete sentences (speaks in 2 to 3 word sentences) Auscultation: diminished lung sounds bilaterally throughout Cardio Rate: regular rate Rhythm: regular rhythm GI Inspection: normal to inspection Palpation: soft, not firm, not rigid and nontender Auscultation: normal bowel sounds Skin General skin exam: no rashes or lesions noted Neuro General: alert, awake and oriented x3 Cognition: normal cognition Speech: speech normal Motor: muscle tone normal throughout Sensory Exam: no sensory deficits noted Extrem General: normal to inspection, full ROM, normal capillary refill, no calf tenderness bilaterally and edema Laterality: bilateral (2+ pitting) Psych Appearance: grossly normal Mental Status: mental status grossly normal Speech and Movement: speech and movement normal Affect: normal affect
[2019-09-09 14:38] LABS: Abs Immature Grans 0.68 k/cumm (0.0-0.09); HCT 31.8 % (36.0-46.0); HGB 9.7 g/dL (12.0-15.5); Mean Corp. HGB Concentration 30.5 g/dL (32.0-36.0); Mean Corpuscular Hemoglobin 22.5 pg (27.0-33.0); Mean Corpuscular Volume 73.6 fL (80-95); Platelet Count 297 x1000/uL (130-400); RBC 4.32 m/cumm (4.00-5.20); RBC Distribution Width 18.5 % (11.7-14.6)
[2019-09-09 14:40] LABS: White Blood Cell Count 25.81 k/cumm (4.4-10.8)
[2019-09-09] MEDS: Albuterol/Ipratropium 3 ML UPD VIAL UPD (14:42)
[2019-09-09] MEDS: Furosemide 40 MG/4 ML VIAL IVP (14:42)
[2019-09-09 14:54] LABS: ALT 16 U/L (14-59); AST 42 U/L (15-37); Albumin 3.3 g/dL (3.4-5.0); Alkaline Phosphatase 168 U/L (46-116); Anion Gap 21.2 mmol/L (3-11); Bilirubin, Total 2.5 mg/dL (0.2-1.0); CO2 15.8 mmol/L (21.0-32.0); CREATININE 3.29 mg/dL (0.55-1.02); Calcium 9.5 mg/dL (8.5-10.1); Chloride 86 mmol/L (98-107); Estimated GFR 13.99 (mL/min/1.73m2); Glucose 85 mg/dL (74-106); Magnesium 2.5 mg/dL (1.8-2.4); Total Protein 6.2 g/dL (6.4-8.2)
[2019-09-09 14:57] LABS: Absolute Eosinophil Count 0.26 k/cumm (0.0-0.7); Absolute Lymphocyte Count 2.58 k/cumm (1.2-3.4); Absolute Monocyte Count 2.06 k/cumm (0.11-0.7); Diff Comment Manual Differential; Nucleated RBC 4 /100WBC
--- NOTE | 2019-09-09 14:58 | DI.RAD_ITS ---
EXAM: XR CHEST 2V PA LATERAL CLINICAL HISTORY: short of breath, weak, leg swelling, r/o chf TECHNIQUE: COMPARISON: XR CHEST 2V PA LATERAL from 06/27/2019 FINDINGS: There is a transvenous cardiac pacemaker in position. Heart is enlarged. There are large bilateral pleural effusions. There is an area of probable consolidation in the right upper lung field. Coupl e of other areas of faint patchy consolidation are probably also present bilaterally. 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 IMPRESSION: Bilateral pleural effusions and cardiomegaly, presumed CHF. Probable superimposed pneumonia. Appropriate follow-up studies requested.
[2019-09-09 14:59] LABS: Hypochromasia 3+
[2019-09-09 15:00] LABS: Microcytosis 2+; Polychromasia Present
[2019-09-09 15:01] LABS: BUN 100 mg/dL (7-18); Poikilocytes 3+; Potassium 6.9 mmol/L (3.5-5.1); Sodium 123 mmol/L (136-145)
[2019-09-09 15:02] LABS: Troponin I 0.08 ng/Ml (<0.06)
[2019-09-09 15:28] LABS: NT-proBNP > 35000 pg/mL (<300)
[2019-09-09] MEDS: Insulin REGULAR-Human 100 UNITS/ML UNIT 7 UNITS IV (15:41)
[2019-09-09] MEDS: Sodium Bicarbonate 50 MEQ/50 ML SYR IVP (15:42)
[2019-09-09] MEDS: Dextrose 50%-Water 25 GM/50 ML SYR IVP (15:42)
[2019-09-09] MEDS: Calcium Chloride 1000 MG/10 ML SYR IVP (15:46)
[2019-09-09] MEDS: Furosemide 40 MG/4 ML VIAL (16:05)
[2019-09-09] MEDS: Albuterol 2.5 MG/3 ML INH SOLN VIAL 10 MG UPD (16:17)
--- NOTE | 2019-09-09 16:30 | DI.VRAD_ITS ---
Addendum created by Karen Ballesteros MD on 09/09/2019 4:34:56 PM EST THIS REPORT CONTAINS FINDINGS THAT MAY BE CRITICAL TO PATIENT CARE. The findings were verbally communicated via telephone conference with yfn cormier at 4:30 PM EST on 09/09/2019. The findings were acknowledged and understood. Initial report created on 09/09/2019 4:29:50 PM EST PROCEDURE INFORMATION: Exam: XR Chest, 2 Views Exam date and time: 09/09/2019 3:00 PM Age: 68 years old Clinical indication: Shortness of breath; Patient HX: Short of breath, leg swelling, R/O chf TECHNIQUE: Imaging protocol: XR of the chest Views: 2 views. COMPARISON: XR CHEST 2V PA LATERAL 06/27/2019 12:46 PM FINDINGS: Lungs: There are moderate bilateral pleural effusions with bilateral lower lung and left retrocardiac opacities that could represent atelectasis or infection. Elsewhere, there is a mild interstitial pattern to the upper lungs which should be correlated with any concern for edema. There is a horizontal heterogeneous opacity in the right upper lung laterally concerning for airspace disease such as pneumonia. Inferior to this, a second horizontal opacity is identified which has the appearance of a fluid level. Although this could represent fluid in a fissure, the horizontal fissure appears higher. Other type of pulmonary abnormalities such as a fluid containing cavitary process is therefore not excluded. A CT scan is recommended for further evaluation. Pleural space: No pneumothorax. See above. Heart/Mediastinum: The mediastinum is mildly prominent but unchanged. Cardiac pacer device, sternotomy wires, and perimediastinal clips remain seen. A probable cardiac stent is noted. Cardiomegaly appears increased from prior study. Bones/joints: There are skeletal degenerative changes. IMPRESSION: 1. Horizontal heterogeneous opacity in the right upper lung laterally concerning for airspace disease such as pneumonia. Inferior to this, a second indeterminate horizontal opacity is identified which has the appearance of a fluid level. CT scan recommended for further evaluation. See discussion above. 2. Moderate bilateral pleural effusions with bilateral lower lung and left retrocardiac opacities that could represent atelectasis or infection. Elsewhere, there is a mild interstitial pattern to the upper lungs which should be correlated with any concern for edema. 3. Cardiomegaly, increased from prior examination. Other findings/details as above. Dictated and Authenticated by: Karen Ballesteros MD. Ordering:SHAN Van MD
[2019-09-09 16:31] LABS: Lactate 10.7 mmol/L (0.6-1.4)
[2019-09-09 16:54] LABS: HCO3 16 mmol/L (22-28); pCO2 30 mmHg (34-47); pH 7.34 (7.35-7.45); pO2 87 mmHg (83-108); sO2 97 % (94-98); tCO2 16 mmol/L (22-29)
[2019-09-09 16:57] LABS: Site Left Radial
[2019-09-09 16:58] LABS: FIO2 25 %
[2019-09-09] MEDS: PIPERACILLIN/TAZO 3.375 GM in Normal Saline 50 ML IVPB (17:45)
[2019-09-09] MEDS: VANCOMYCIN 1,250 MG in Normal Saline 250 ML 166.6666 MG IVPB (18:15)
[2019-09-09 18:45] LABS: Bilirubin Negative (Negative); Blood Large (Negative); Clarity Cloudy (Clear); Glucose Negative (Negative); Ketones Negative (Negative); Leukocyte Esterase Large (Negative); Nitrite Positive (Negative); Specific Gravity 1.015 (1.005-1.025); Urobilinogen 0.2 EU/dL (Up TO 0.2)
[2019-09-09 18:52] LABS: Bacteria Many HPF (Negative); C & S Indicated? Yes; RBC >50 HPF (0-2); WBC >50 HPF (0-5)
--- NOTE | 2019-09-11 08:41 | NUR.NOTE ---
Patient transferred to [facility] – [place], [place]. Urine culture result faxed to [facility] ICU, .Nursing Note:
== END 2019-09-09 18:34 | disposition short-term general hospital (02) ==
PROVIDERS: Emergency Provider Physician Assistant; PCP Family Medicine
DX: I50.23 Acute on chronic systolic (congestive) heart failure (principal); N17.9 Acute kidney failure, unspecified; E87.6 Hypokalemia; R77.8 Other specified abnormalities of plasma proteins; N39.0 Urinary tract infection, site not specified; B96.20 Unspecified Escherichia coli [E. coli] as the cause of diseases classified elsewhere; I11.0 Hypertensive heart disease with heart failure; R91.8 Other nonspecific abnormal finding of lung field; J44.9 Chronic obstructive pulmonary disease, unspecified; Z87.891 Personal history of nicotine dependence
CPT/HCPCS: 36415; 36416; 51702; 80053; 82805; 82962; 87077; 93005; 94640; 96365; 96367; 96375; 99285; 71046; 81003; 81015; 83605; 83735; 83880; 84484; 85025; 87086; 87186; 93010; J1940; J2543; J7613; J7620